=== PATIENT | female | born 1975 | race African-American/Black ===

== ENCOUNTER 2016-07-20 03:16 | Emergency (ER) | payer SELFPAY ==
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
== END 2016-07-20 03:41 | disposition home or self-care (01) ==
LOC: NAV ERS 03:16
DX: S01.311A Laceration without foreign body of right ear, initial encounter (principal); E78.5 Hyperlipidemia, unspecified; W25.XXXA Contact with sharp glass, initial encounter
CPT/HCPCS: 99282

== ENCOUNTER 2017-11-12 10:02 | Emergency (ER) | payer OTHER ==
[2017-11-12 10:45] LABS: #Basophils 0.1 thou/uL (0.0-0.2); #Eosinphils 0.2 thou/uL (0.0-0.7); #Lymphocytes 1.7 thou/uL (1.20-3.40); #Monocytes 0.4 thou/uL (0.11-0.59); #Neutrophils 4.4 thou/uL (1.40-6.50); %Basophils 0.9 % (0.0-1.0); %Eosinophils 3.2 % (0.0-10.0); %Lymphocytes 25.5 % (21.0-51.0); %Monocytes 5.3 % (0.0-10.0); %Neutrophils 65.2 % (42.0-75.0); Hemoglobin 9.9 g/dL (12.0-16.0); Mean Corpuscular HGB CONC 30.8 g/dL (32.0-36.0); Mean Corpuscular Hemoglobin 27.7 pg (27.0-31.0); Mean Platelet Volume 8.7 fL (7.4-10.4); Platelet Count 311 thou/uL (130-400); RBC Distribution Width 13.6 % (11.5-14.5); Red Blood Cell (RBC) Count 3.57 mill/uL (4.20-5.40); White Blood Cell (WBC) Count 6.7 thou/uL (4.8-10.8)
[2017-11-12 10:53] LABS: ALT (SGPT) 26 U/L (8-55); AST (SGOT) 19 U/L (5-34); Albumin 3.4 g/dL (3.5-5.0); Alkaline Phosphatase 59 U/L (40-150); Anion Gap 9 mmol/L (10-20); BUN (Urea Nitrogen) 12 mg/dL (7.0-18.7); Bilirubin, Total 0.3 mg/dL (0.2-1.2); Calc. Creatinine Clearance 0 mL/min (70-130); Calcium 8.5 mg/dL (7.8-10.44); Carbon Dioxide 26 mmol/L (22-29); Chloride 109 mmol/L (98-107); Estimated GFR-MDRD Greater than 90; Globulin 3.5 g/dL (2.4-3.5); Glucose 86 mg/dL (70-105); Protein, Total 6.9 g/dL (6.0-8.3); Sodium 140 mmol/L (136-145)
[2017-11-12] MEDS ORDERED: Acetaminophen 500 MG TAB ONE (11:21)
[2017-11-12] MEDS ORDERED: traMADol HCl 50 MG TAB ONE (11:21)
== END 2017-11-12 12:12 | disposition home or self-care (01) ==
LOC: NAV ERS 10:02
DX: N94.6 Dysmenorrhea, unspecified (principal); D64.9 Anemia, unspecified
CPT/HCPCS: 36415; 80053; 84702; 85025; 99284

== ENCOUNTER 2018-10-30 20:56 | Emergency (ER) | payer OTHER ==
[2018-10-30] MEDS ORDERED: Azithromycin 250 MG TAB ONE (21:23)
[2018-10-30] MEDS ORDERED: methylPREDNISolone Acetate 40 mg/ml Vial ONE (21:24)
== END 2018-10-30 21:47 | disposition home or self-care (01) ==
LOC: NAV ERS 20:56
DX: J20.9 Acute bronchitis, unspecified (principal)
CPT/HCPCS: 96372; J1030

== ENCOUNTER 2020-06-22 15:44 | Emergency (ER) | payer SELFPAY ==
[2020-06-22] MEDS ORDERED: methylPREDNISolone Sod Succ/PF 125 MG/2 ML VIAL ONE (16:44)
--- NOTE | 2020-06-22 16:49 | RAD ---
Chest AP view INDICATION: Dyspnea COMPARISON: None FINDINGS: Lungs: Low lung volumes Cardiac silhouette: The cardiomediastinal silhouette appears within normal limits. Pulmonary vasculature: Normal Pleural spaces: No pleural effusion or pneumothorax is demonstrated. Upper abdomen: No abnormality seen. Osseous structures: No acute osseous abnormality. Additional findings: None. IMPRESSION: Low lung volumes
[2020-06-22 16:57] LABS: #Lymphocytes 1.4 thou/uL (1.20-3.40); #Monocytes 0.2 thou/uL (0.11-0.59); #Neutrophils 3.4 thou/uL (1.40-6.50); %Basophils 0.5 % (0.0-1.0); %Eosinophils 0.2 % (0.0-10.0); %Lymphocytes 27.4 % (21.0-51.0); %Monocytes 4.6 % (0.0-10.0); %Neutrophils 67.3 % (42.0-75.0); Hemoglobin 9.3 g/dL (12.0-16.0); Mean Corpuscular HGB CONC 30.1 g/dL (32.0-36.0); Mean Corpuscular Hemoglobin 22.3 pg (27.0-31.0); Mean Corpuscular Volume 74.2 fL (78.0-98.0); Mean Platelet Volume 7.2 fL (7.4-10.4); Platelet Count 388 thou/uL (130-400); RBC Distribution Width 15.6 % (11.5-14.5); Red Blood Cell (RBC) Count 4.14 mill/uL (4.20-5.40)
[2020-06-22 17:07] LABS: ALT (SGPT) 18 U/L (8-55); AST (SGOT) 23 U/L (5-34); Albumin 3.6 g/dL (3.5-5.0); Alkaline Phosphatase 48 U/L (40-110); Anion Gap 15 mmol/L (10-20); BUN (Urea Nitrogen) 16 mg/dL (7.0-18.7); Bilirubin, Total 0.3 mg/dL (0.2-1.2); Calc. Creatinine Clearance 0 mL/min (70-130); Calcium 8.3 mg/dL (7.8-10.44); Carbon Dioxide 20 mmol/L (22-29); Chloride 106 mmol/L (98-107); Globulin 4.2 g/dL (2.4-3.5); Glucose 92 mg/dL (70-105); Potassium 3.3 mmol/L (3.5-5.1); Protein, Total 7.8 g/dL (6.0-8.3); Sodium 138 mmol/L (136-145)
[2020-06-22 17:14] LABS: Anisocytosis SLIGHT = 6-15 cells (100X) (0-5/hpf); MDiff Complete? YES; Microcytosis SLIGHT = 6-15 cells (100X) (0-5/hpf); Ovalocytes SLIGHT = 2-5 cells (100X) (0-1/hpf)
[2020-06-22 17:35] LABS: Clarity Clear (Clear); Specific Gravity, Urine 1.025 (1.005-1.030)
[2020-06-22 17:36] LABS: Bilirubin Moderate (Negative); Blood, Urine Negative (Negative); Glucose, Urine (Dipstick) Negative (Negative); Ketone, Urine 15 mg/dL (Negative); Leukocyte Negative (Negative); Nitrite Negative (Negative); Protein, Urine (Dipstick) > or equal to 300 mg/dL (Neg-Trace); pH, Urine 5.5 (5.0-9.0)
[2020-06-22 17:38] LABS: Bacteria/HPF Rare-Few HPF (None Seen); RBC/HPF 0-3 HPF (0-3)
--- NOTE | 2020-06-26 08:40 | PQF ---
[facility] POST DISCHARGE CLINICAL DOCUMENTATION IMPROVEMENT CLARIFICATION FORM Todays Date: 06/24/2020 Patients Name Makayla Andino Admit Date 06/22/2020 Disch Date 06/22/2020 Medical Science Liaison Name Dedrick avila Email: [email or web address] Cell: [phone] To be completed by Medical Science Liaison: Present Clinical Indicators - Signs / Symptoms Results and Location in Medical Record [ ] Documentation of: [ ] [ ] Documentation of: [ ] [ ] Documentation of: [ ] [ ] Documentation of: [ ] [ ] Risks [ ] [ ] [ ] Treatment [ ] BRONCHITIS Query For Specificity Of Acute Or Chronic Bronchitis [ ] [ ] To be completed by Physician: MD Jarvis James The documentation in this patients record requires clarification to ensure coding compliance and accuracy. Check the appropriate box and include in your discharge summary. [ ] [ ] [ ] [ ] Please check this box if this does not apply to this patient [ ] Unable to determine [ ] Other diagnosis: Review the following information and exercise your independent professional judgment in responding to the clarification. Based upon the clinical findings, risk factors, and treatment, please clarify if you are treating one of the above probable or suspected diagnoses. Physician Signature: Date Time KANDACED
== END 2020-06-22 17:50 | disposition home or self-care (01) ==
LOC: NAV ERS 15:44
DX: U07.1 COVID-19 (principal); J40 Bronchitis, not specified as acute or chronic; D50.9 Iron deficiency anemia, unspecified
CPT/HCPCS: 36415; 71045; 80053; 81003; 81015; 83605; 85025; 85379; 96374; J2930

== ENCOUNTER 2021-11-20 22:08 | Emergency (ER) | payer SELFPAY ==
[2021-11-20] MEDS ORDERED: Amlodipine 5 MG TAB ONE (23:15)
[2021-11-20] MEDS ORDERED: Acetaminophen 500 MG TAB ONE (23:15)
== END 2021-11-20 23:19 | disposition home or self-care (01) ==
LOC: NAV ERS 22:08
DX: I10 Essential (primary) hypertension (principal)
CPT/HCPCS: 99283

== ENCOUNTER 2022-02-20 10:20 | Emergency (ER) | payer SELFPAY ==
[2022-02-20] MEDS ORDERED: traMADol HCl 50 MG TAB ONE (11:10)
[2022-02-20] MEDS ORDERED: Methocarbamol 500 MG TAB PO SCH (11:30)
== END 2022-02-20 11:55 | disposition home or self-care (01) ==
LOC: NAV ERS 10:20
DX: S39.012A Strain of muscle, fascia and tendon of lower back, initial encounter (principal); M47.816 Spondylosis without myelopathy or radiculopathy, lumbar region; M51.36 Other intervertebral disc degeneration, lumbar region; I10 Essential (primary) hypertension; F17.210 Nicotine dependence, cigarettes, uncomplicated; W19.XXXA Unspecified fall, initial encounter
CPT/HCPCS: 72131; 72192

== ENCOUNTER 2023-03-24 17:15 | Emergency (ER) | payer SELFPAY ==
[2023-03-24] MEDS ORDERED: Ibuprofen 800 MG TAB ONE (17:31)
[2023-03-24] MEDS ORDERED: Acetaminophen 500 MG TAB ONE (18:26)
== END 2023-03-24 19:05 | disposition home or self-care (01) ==
LOC: NAV ERS 17:15
DX: U07.1 COVID-19 (principal); F17.210 Nicotine dependence, cigarettes, uncomplicated; I10 Essential (primary) hypertension
CPT/HCPCS: 87081; 87430; 87635; 87804; 99283

== ENCOUNTER 2023-08-03 06:54 | Emergency (ER) | payer SELFPAY ==
[2023-08-03 07:31] LABS: #Basophils 0.1 thou/uL (0.0-0.2); #Eosinphils 0.2 thou/uL (0.0-0.7); #Lymphocytes 2.3 thou/uL (1.20-3.40); #Monocytes 0.5 thou/uL (0.11-0.59); #Neutrophils 6.1 thou/uL (1.40-6.50); %Eosinophils 2.7 % (0.0-10.0); %Lymphocytes 24.7 % (21.0-51.0); %Monocytes 4.9 % (0.0-10.0); %Neutrophils 66.7 % (42.0-75.0); Hemoglobin 13.2 g/dL (12.0-16.0); Manual Diff?? NO; Mean Corpuscular Hemoglobin 30.5 pg (27.0-31.0); Mean Corpuscular Volume 92.5 fl (78.0-98.0); Mean Platelet Volume 8.8 fL (7.4-10.4); Platelet Count 217 10x3/uL (130-400); RBC Distribution Width 11.9 % (11.5-14.5); Red Blood Cell (RBC) Count 4.32 mill/uL (4.20-5.40); White Blood Cell (WBC) Count 9.2 10x3/uL (4.8-10.8)
[2023-08-03] MEDS ORDERED: Diazepam 5 MG TAB ONE (08:16)
[2023-08-03 08:17] LABS: Chloride 110 mmol/L (98-107); Glucose 94 mg/dL (70-105); Potassium 3.2 mmol/L (3.5-5.1); Sodium 141 mmol/L (136-145)
[2023-08-03 08:20] LABS: Carbon Dioxide 22 mmol/L (22-29)
[2023-08-03 08:23] LABS: ALT (SGPT) 12 U/L (8-55); AST (SGOT) 10 U/L (5-34); Albumin 3.7 g/dL (3.5-5.0); Alkaline Phosphatase 80 U/L (40-110); Anion Gap 12 mmol/L (10-20); BUN (Urea Nitrogen) 13 mg/dL (7.0-18.7); Bilirubin, Total 0.7 mg/dL (0.2-1.2); Calc. Creatinine Clearance 0 mL/min (70-130); Calcium 8.8 mg/dL (7.8-10.44); Estimated GFR 100; Protein, Total 7.7 g/dL (6.0-8.3)
[2023-08-03 08:29] LABS: Troponin I Less than 0.010 ng/mL (< 0.028)
[2023-08-03 08:37] LABS: Bilirubin Negative (Negative); Blood, Urine Trace (Negative); Glucose, Urine (Dipstick) Negative (Negative); Ketone, Urine Negative (Negative); Leukocyte Negative (Negative); Nitrite Negative (Negative); Protein, Urine (Dipstick) 30 mg/dL (Neg-Trace); pH, Urine 6.5 (5.0-9.0)
[2023-08-03 08:38] LABS: Clarity Hazy (Clear)
[2023-08-03 08:45] LABS: Bacteria/HPF Rare-Few HPF (None Seen); Mucous/LPF 1+ LPF (<2+); RBC/HPF 0-3 HPF (0-3); Squamous Epithelial 0-3 HPF (0-3); Transitional Epithelial 0-3 HPF (None Seen); WBC/HPF 0-3 HPF (0-3)
[2023-08-03 08:46] LABS: Urine Culture Reflex No No
[2023-08-03] MEDS ORDERED: Potassium Chloride 20 MEQ TAB ONE (08:47)
[2023-08-03 08:50] LABS: Salicylate Less than 8.0 mg/dL (15.0-30.0)
[2023-08-03 08:50] LABS: Amphetamine Not Detected (NotDetected); Barbiturates Screen Not Detected (NotDetected); Benzodiazepine Screen Not Detected (NotDetected); Cocaine Metabolite Screen Not Detected (NotDetected); Methadone Not Detected (NotDetected); Methamphetamine Not Detected (NotDetected); Opiate Screen Not Detected (NotDetected); Oxycodone Screen Not Detected (NotDetected); Phencyclidine (PCP) Not Detected (NotDetected); THC/Cannabinoid Screen Not Detected (NotDetected); Tricyclic Screen Not Detected (NotDetected)
[2023-08-03 08:54] LABS: Acetaminophen Less than 10 mcg/mL (10.0-30.0); Alcohol Less than 10.0 mg/dL (Less than 10)
== END 2023-08-03 11:07 | disposition home or self-care (01) ==
LOC: NAV ERS 06:54
DX: F41.9 Anxiety disorder, unspecified (principal); I10 Essential (primary) hypertension; F17.210 Nicotine dependence, cigarettes, uncomplicated
CPT/HCPCS: 71045; 80053; 80306; 80307; 81001; 83880; 84443; 84484; 85025; 85379; 93005

== ENCOUNTER 2024-09-09 14:56 | Emergency (ER) | payer BC ==
[2024-09-09] MEDS ORDERED: Ibuprofen 800 MG TAB ONE (15:23)
== END 2024-09-09 15:45 | disposition home or self-care (01) ==
LOC: NAV ERS 14:56
DX: S63.602A Unspecified sprain of left thumb, initial encounter (principal); I10 Essential (primary) hypertension; F17.210 Nicotine dependence, cigarettes, uncomplicated; Z79.899 Other long term (current) drug therapy; X58.XXXA Exposure to other specified factors, initial encounter
CPT/HCPCS: 99283